=== PATIENT | female | born 1965 | race African-American/Black ===

== ENCOUNTER → 2017-02-01 | Outpatient (CLI) | payer OTHER ==
--- NOTE | 2017-02-01 17:33 | RAD ---
DATE: 02/01/2017 EXAM: MAMMO LATRICE SCREENING BILATERAL HISTORY: Bilateral screening mammogram COMPARISON: 01/29/2016 The breast parenchyma shows scattered fibroglandular densities. Breast parenchyma level B. FINDINGS: Bilateral digital 2D and 3D tomosynthesis CC and MLO views. No suspicious mass, calcification or architectural distortion in either breast. IMPRESSION: No mammographic evidence to suggest malignancy. BI-RADS 1, negative. Recommend routine screening mammogram in 12 months BI-RADS CATEGORY: 1 NEGATIVE RECOMMENDED FOLLOW-UP: 12M 12 MONTH FOLLOW-UP PQRS compliance statement: Patient information was entered into a reminder system with a target due date January 2018 for the next mammogram. Mammography is a sensitive method for finding small breast cancers, but it does not detect them all and is not a substitute for careful clinical examination. A negative mammogram does not negate a clinically suspicious finding and should not result in delay in biopsying a clinically suspicious abnormality. "Our facility is accredited by the [employer]."
== END | disposition home or self-care (01) ==
LOC: KCIC MAMMO 09:50
PROVIDERS: ATTEND Family Medicine
DX: Z12.31 Encounter for screening mammogram for malignant neoplasm of breast (principal)
CPT/HCPCS: 77063; G0202; 77067

== ENCOUNTER → 2018-04-16 | Outpatient (CLI) | payer OTHER ==
--- NOTE | 2018-04-16 12:34 | KCIC ---
MR of the left shoulder Indication: Left shoulder pain and swelling, acute pain over 2 weeks ago. Technique: Standard multiplanar sequences are obtained. Findings: Artifact: Mild motion degradation. Acromioclavicular joint: Mildly degenerative. Rotator cuff: * Supraspinatus-infraspinatus tendon: Mild tendinosis. No evidence of a fluid gap or rupture. * Subscapularis tendon: Intact * Muscle bulk: Within normal limits * Subacromial subdeltoid bursa: Trace effusion. Fluid: No significant glenohumeral effusion. Glenohumeral cartilage: No acute defect or advanced DJD. Labrum: No evidence of labral detachment. Biceps tendon: Intact Bones: No lesion or acute fracture. Soft tissue: No acute findings. Impression: 1. Rotator cuff tendinosis, no measurable tear or rupture. 2. No acute findings. Electronically signed by: Miguel Munoz MD (04/16/2018 12:31 PM) [email or web address]
--- NOTE | 2018-04-16 13:01 | KCIC ---
MRI Cervical Spine Without Contrast History: Left shoulder pain, swelling, neck pain with radiculopathy, previous surgery, left shoulder pain starting 2 weeks ago, left upper extremity numbness Technique: Multiplanar, multi sequential noncontrast MR imaging was performed of the cervical spine. Comparison: None Findings: There is motion degradation. Cervical cord caliber is within normal limits, no expansile signal change. There is likely mild linear T2 and STIR signal in the region of the central canal of the cord at the C1-C2 level although poorly evaluated. There has been suboccipital decompression. The cervical vertebral body stature and AP alignment are maintained. Intervertebral disc spaces are relatively preserved. There is no significant marrow edema. C2-C3: Spinal canal and neural foramina are adequate. C3-C4: Neural foramina and spinal canal are adequate. C4-C5: Spinal canal and neural foramina are adequate. C5-C6: There is minimal disc osteophyte complex. Spinal canal is adequate. There is probable mild narrowing left neural foramen in part from uncovertebral and to change, right neural foramen not significantly narrowed. C6-C7: Spinal canal and neural foramina are adequate. C7-T1: Neural foramina and spinal canal are adequate. Impression: 1. Exam is degraded by motion. There is no significant cervical spinal stenosis. There is likely mild narrowing of the left C5-C6 neural foramen by uncovertebral degenerative change. 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 There has been suboccipital decompression. Electronically signed by: Evert Sanders MD (04/16/2018 12:58 PM) [email or web address]
--- NOTE | 2018-04-16 13:08 | KCIC ---
EXAM: Skull, 3 views. HISTORY: MRI metal screening. COMPARISON: None. FINDINGS: 3 views of the skull are obtained. There is no metallic foreign body to preclude MRI. IMPRESSION: No metallic foreign body to preclude MRI. Electronically signed by: Magaly Black MD (04/16/2018 1:05 PM) [email or web address]
--- NOTE | 2018-04-16 13:14 | KCIC ---
Bilateral digital screening mammograms: Reason for examination: Routine screening. Comparison is made to previous studies dated 02/01/2017 and 01/29/2016. Interpretation was made with the benefit of CAD. The skin and nipples show no abnormalities. No abnormal axillary lymph nodes are seen. The breast parenchyma shows scattered fibroglandular density. (Breast density: Category B.) There are no dominant masses, suspicious calcifications or architectural distortions. Impression: No evidence of malignancy. Recommend routine screening. BI-RADS Category 1: Negative. "Our facility is accredited by the [employer]ammography [employer]." This patient's information has been entered into a reminder system for the patient to be notified with the results of her examination and a target date for the next mammogram. Electronically signed by: Matilde Mendez MD (04/16/2018 1:11 PM) [id number]
== END | disposition home or self-care (01) ==
LOC: KCIC MRI 10:02
PROVIDERS: ATTEND Family Medicine
DX: Z12.31 Encounter for screening mammogram for malignant neoplasm of breast (principal); Z13.88 Encounter for screening for disorder due to exposure to contaminants; M75.102 Unspecified rotator cuff tear or rupture of left shoulder, not specified as traumatic; M19.012 Primary osteoarthritis, left shoulder; M25.78 Osteophyte, vertebrae
CPT/HCPCS: 70250; 72141; 73221; 77067

== ENCOUNTER → 2019-07-24 | Outpatient (CLI) | payer OTHER ==
[2018-05-15 15:41] VITALS: BP 143/75
[~2019-07-24] MED LIST: AMLO10TA8 PO; GABA-585 PO; HYDR12.575 PO; LOSA-73 PO; LOSA25TA54 PO; NAPR-677 PO; Pantoprazole PO
--- NOTE | 2019-07-25 08:57 | KCIC ---
Bilateral digital screening mammograms: Reason for examination: Routine screening. Comparison is made to previous studies dated 04/16/2018 and 02/01/2017. Interpretation was made with the benefit of CAD. The skin and nipples show no abnormalities. No abnormal axillary lymph nodes are seen. The breast parenchyma shows scattered fibroglandular density. (Breast density: Category B.) There are no dominant masses, suspicious calcifications or architectural distortions. Impression: No evidence of malignancy. Recommend routine screening. BI-RADS Category 1: Negative. "Our facility is accredited by the [employer]amm[employer]." This patient's information has been entered into a reminder system for the patient to be notified with the results of her examination and a target date for the next mammogram. Electronically signed by: Matilde Mendez MD (07/25/2019 8:54 AM) [id number]
== END | disposition home or self-care (01) ==
LOC: KCIC MAMMO 12:52
PROVIDERS: ATTEND Family Medicine
DX: Z12.31 Encounter for screening mammogram for malignant neoplasm of breast (principal)
CPT/HCPCS: 77067

== ENCOUNTER → 2021-04-14 | Outpatient (CLI) | payer OTHER ==
[2018-05-15 15:41] VITALS: BP 143/75
[~2021-04-14] MED LIST changes: +AMLO-187 PO; -AMLO10TA8 PO
--- NOTE | 2021-04-14 11:38 | KCIC ---
Bilateral digital screening mammograms: Reason for examination: Routine screening. Comparison is made to previous studies dated back to 01/29/2000. Interpretation was made with the benefit of CAD. The skin and nipples show no abnormalities. No abnormal axillary lymph nodes are seen. The breast par enchyma shows scattered fibroglandular density. (Breast density: Category B.) There are no dominant m asses, suspicious calcifications or architectural distortions. Impression: No evidence of malignancy. Recommend routine screening. BI-RADS Category 1: Negative. "Our facility is accredited by the [employer]ammography [employer]." This patient's information has been entered into a reminder system for the patient to be notified wit h the results of her examination and a target date for the next mammogram. Electronically signed by: Matilde Mendez MD (04/14/2021 11:35 AM) [email or web address]
== END ==
LOC: KCIC MAMMO 09:29
PROVIDERS: ATTEND Family Medicine
DX: Z12.31 Encounter for screening mammogram for malignant neoplasm of breast (principal)
CPT/HCPCS: 77067